=== PATIENT | female | born 1985 | race Caucasian/White ===

== ENCOUNTER 2018-03-01 14:02 | Inpatient (IN) | payer BC ==
[~2018-03-01] VITALS: Ht 160 cm; Wt 102.3 kg
[2018-03-01] VITALS (18 sets, daily range): BP systolic 96–151; BP diastolic 49–74; PULSE 78–104; TEMP 97.6–98.6
[~2018-03-01 14:02] MED LIST: IBU800 M1 PO; PERCOCET 325 MG1 TA2 PO; PRENATAL PO
[2018-03-01] MEDS ORDERED: PROTONIX20 MG PO (14:39)
[2018-03-01 15:04] LABS: BASO % 0.3 % (0.0-2.0); EOS # 0.1 (0.0-0.7); EOS % 0.7 % (0-4.0); GRAN # 7.7 (1.4-6.5); HEMOGLOBIN 10.8 g/dl (12.5-16.0); LYMPH # 1.9 (1.2-3.4); LYMPH % 18.6 % (20.0-51.0); MEAN CELL VOLUME 79 fl (80.0-100.0); MEAN CORPUSCULAR HEMOGLOBIN 25 pg (27.0-31.0); MEAN CORPUSCULAR HGB CONC 32 g/dl (33.0-37.0); MEAN PLATELET VOLUME 12.2 fl (7.4-10.4); MONO # 0.6 (0.1-0.6); PLATELET COUNT 189 K/mm3 (130-400); RED BLOOD COUNT 4.31 M/mm3 (4.10-5.30); REDCELL DISTRIBUTION WIDTH-CV 15.4 % (11.5-14.5)
[2018-03-01 15:05] LABS: HEMATOCRIT 33.9 % (37.0-47.0)
[2018-03-02 03:00] VITALS: BP 108/65; PULSE 83; TEMP 97.9
[2018-03-02 08:00] VITALS: BP 135/83; PULSE 95
[2018-03-02 16:38] VITALS: BP 126/67; PULSE 96
[2018-03-02 20:30] VITALS: BP 114/76; PULSE 87; TEMP 98
[2018-03-03 08:00] VITALS: BP 125/79; PULSE 89; TEMP 97.9
[2018-03-03] MEDS ORDERED: IBU800 M1 PO (13:29)
[2018-03-03] MEDS ORDERED: PERCOCET 325 MG1 TA2 PO (13:29)
[2018-03-03 16:10] VITALS: BP 136/76; PULSE 93; TEMP 97.4
== END 2018-03-03 16:45 | disposition home or self-care (01) | DRG 775 ==
LOC: LDRO 14:02 → LDR 14:48 → OB 20:30
PROVIDERS: Student in an Organized Health Care Education/Training Program
PROC: 10E0XZZ Delivery of Products of Conception, External Approach (ICD-10-PCS; principal; 2018-03-01)
PROC: 0KQM0ZZ Repair Perineum Muscle, Open Approach (ICD-10-PCS; 2018-03-01)
DX: O70.1 Second degree perineal laceration during delivery (principal); Z37.0 Single live birth; Z3A.38 38 weeks gestation of pregnancy; E28.2 Polycystic ovarian syndrome
CPT/HCPCS: J2590; J7120

== ENCOUNTER → 2018-03-04 | Outpatient (CLI) | payer BC ==
[~2018-03-04] MED LIST changes: +PROTONIX20 MG PO
== END ==
LOC: LAC 09:59
DX: Z39.1 Encounter for care and examination of lactating mother (principal); Z71.89 Other specified counseling

== ENCOUNTER 2021-11-21 14:17 | Outpatient (RCR) | payer OTHER | END 2021-11-28 | disposition home or self-care (01) | LOC: WSOH | DX: S96.911A Strain of unspecified muscle and tendon at ankle and foot level, right foot, initial encounter (principal); Y99.0 Civilian activity done for income or pay ==

== ENCOUNTER 2021-11-30 14:35 | Outpatient (RCR) | payer OTHER | END 2021-12-28 | disposition home or self-care (01) | LOC: WSOH | DX: S93.409D Sprain of unspecified ligament of unspecified ankle, subsequent encounter (principal); X50.1XXD Overexertion from prolonged static or awkward postures, subsequent encounter ==

== ENCOUNTER 2022-01-03 11:02 | Outpatient (RCR) | payer OTHER | END 2022-01-28 | disposition home or self-care (01) | LOC: WSOH | DX: S96.911D Strain of unspecified muscle and tendon at ankle and foot level, right foot, subsequent encounter (principal); X58.XXXD Exposure to other specified factors, subsequent encounter; Y99.0 Civilian activity done for income or pay ==

== ENCOUNTER → 2022-01-25 | Outpatient (CLI) | payer OTHER, BC | LOC: COL.RAD 09:59 | DX: S99.911A Unspecified injury of right ankle, initial encounter (principal); S93.491A Sprain of other ligament of right ankle, initial encounter; S86.312A Strain of muscle(s) and tendon(s) of peroneal muscle group at lower leg level, left leg, initial encounter ==

== ENCOUNTER → 2022-01-31 | Outpatient (CLI) | payer OTHER, BC | LOC: COL.RAD 14:16 | DX: M19.071 Primary osteoarthritis, right ankle and foot (principal) ==